=== PATIENT | female | born 1990 | race Caucasian/White ===

== ENCOUNTER 2021-12-25 14:12 | Outpatient (CLI) | payer OTHER, SELFPAY | END 2021-12-25 14:13 | disposition home or self-care (01) | LOC: FRMREF 14:13 | PROVIDERS: PCP Family Medicine; Visit Provider Family Medicine | DX: Z00.00 Encounter for general adult medical examination without abnormal findings (principal); E03.9 Hypothyroidism, unspecified; Z11.3 Encounter for screening for infections with a predominantly sexual mode of transmission | CPT/HCPCS: 87624; 88175 ==

== ENCOUNTER 2022-12-22 10:31 | Outpatient (CLI) | payer OTHER, SELFPAY | END 2022-12-22 10:32 | disposition home or self-care (01) | PROVIDERS: PCP Family Medicine; Visit Provider Internal Medicine | DX: E03.8 Other specified hypothyroidism (principal); E66.01 Morbid (severe) obesity due to excess calories; E06.3 Autoimmune thyroiditis | CPT/HCPCS: 84439; 84443 ==

== ENCOUNTER 2024-01-13 16:23 | Outpatient (CLI) | payer OTHER, SELFPAY | END 2024-01-13 16:24 | disposition home or self-care (01) | LOC: NFLDREF 16:24 | PROVIDERS: PCP Family Medicine; Visit Provider Internal Medicine | DX: E03.8 Other specified hypothyroidism (principal); E06.3 Autoimmune thyroiditis; E66.01 Morbid (severe) obesity due to excess calories | CPT/HCPCS: 84439; 84443 ==

== ENCOUNTER 2025-01-17 09:35 | Outpatient (CLI) | payer OTHER, SELFPAY | END 2025-01-17 09:36 | disposition home or self-care (01) | LOC: NFLDREF 01-22 04:38 | PROVIDERS: PCP Internal Medicine; Referring Provider Internal Medicine; Visit Provider Internal Medicine | DX: E03.8 Other specified hypothyroidism (principal); E06.3 Autoimmune thyroiditis; E66.01 Morbid (severe) obesity due to excess calories | CPT/HCPCS: 80053; 80061; 84439; 84443 ==